=== PATIENT | male | born 1935 | race African-American/Black ===

== ENCOUNTER 2022-05-26 11:43 | Inpatient (IN) | payer MEDICARE, MEDICAID ==
[2022-05-26] VITALS (18 sets, daily range): BP systolic 85–129; BP diastolic 52–72
[~2022-05-26] VITALS: Ht 170.2 cm; Wt 69.0 kg
[2022-05-26] MEDS ORDERED: DILTIAZEM HCL 5MG/ML 5ML VIAL IV ONE ×2 (12:15→13:00)
[2022-05-26] MEDS ORDERED: SODIUM CHLORIDE 0.9% 1,000 ML IV ONE (12:15)
[2022-05-26] MEDS ORDERED: DILTIAZEM HCL 125 MG in DEXT 5% WATER 100 ML IV ONE (13:45)
[2022-05-26 14:12] LABS: BASOPHILS % 0.1 % (0.0-2.0); EOSINOPHILS % 0.5 % (0.0-5.0); HEMATOCRIT. 30.2 % (42.0-52.0); LYMPHOCYTES % 9.3 % (20.0-50.0); MEAN CORPUSCULAR HEMOGLOBIN 32.7 pg (28.0-32.0); MEAN CORPUSCULAR VOLUME 109.6 fL (80.0-94.0); MEAN PLATELET VOLUME 11.1 fl (7.4-10.4); MONOCYTES % 2.3 % (2.0-8.0); NEUTROPHILS % 87.8 % (40.0-76.0); PLATELET 354 x1000/uL (130-400); RED BLOOD CELL COUNT 2.76 mill/uL (4.7-6.1)
[2022-05-26 14:17] LABS: CHLORIDE 129 mEq/L (98-107); INR 1.1; PROTHROMBIN TIME 11.9 sec (9.6-11.0)
[2022-05-26] MEDS: DILTIAZEM 125MG/125ML PMX 100 ML IV SCH (14:39)
[2022-05-26] MEDS ORDERED: LIDOCAINE HCL 1% 30ML VIAL (10MG/ML) ONE (14:43)
[2022-05-26] MEDS ORDERED: ADENOSINE 3 MG/ML 2ML VIAL IV ONE ×2 (15:00)
[2022-05-26] MEDS ORDERED: AMIODARONE HCL 900 MG in DEXT 5% WATER 482 ML IV STA ×2 (15:00→16:43)
[2022-05-26] MEDS ORDERED: AMIODARONE HCL 150 MG in DEXT 5% WATER 100 ML IV ONE (15:00)
[2022-05-26] MEDS ORDERED: SODIUM CHLORIDE 0.9% 1000ML BAG (SEPSIS BOLUS) IV NR (15:30)
[2022-05-26] MEDS ORDERED: CEFEPIME HCL 1000MG/VIAL INJ IM ONE (15:30)
[2022-05-26] MEDS ORDERED: VANCOMYCIN 1G PREMIX 200 ML IV SCH (15:30)
[2022-05-26] MEDS ORDERED: SODIUM CHLORIDE 0.45% 1,000 ML IV ONE (15:45)
[2022-05-26 16:00] LABS: BG BASE EXCESS -1.2 mmol/L (-2.0-2.0); BG CARBOXYHEMOGLOBIN 0.3 % (0.5-1.5); BG DEOXYHEMOGLOBIN 0.6 % (0.0-5.0); BG FRACTION INSPIRED OXYGEN 100; BG METHEMOGLOBIN 0.4 % (0.0-1.5); BG OXYGEN SATURATION 99.4 % (92.0-98.5); BG OXYHEMOGLOBIN 98.7 % (94.0-97.0); BG PCO2 31.3 mmHg (35.0-45.0); BG PH 7.464 (7.350-7.450); BG PO2 387.8 mmHg (75.0-100.0); BG SAMPLE SITE RIGHT RADIAL; BG TOTAL HEMOGLOBIN 10.1 g/dL (12.0-18.0); BG VENT MODE MASK - BIPAP
[2022-05-26] MEDS ORDERED: ROCURONIUM BROMIDE 10MG/ML VIAL 5ML IV ONE (16:15)
[2022-05-26] MEDS ORDERED: CEFEPIME 1,000 MG in DEXTROSE 5% WATER 50 ML IV NR (16:15)
[2022-05-26] MEDS ORDERED: ETOMIDATE 2MG/ML 10ML VIAL IV ONE (16:15)
[2022-05-26] MEDS ORDERED: MIDAZOLAM HCL 100 MG in DEXT 5% WATER 80 ML IV ONE (16:15)
[2022-05-26 16:23] LABS: CLARITY URINE CLEAR (CLEAR); COLOR URINE YELLOW (YELLOW); KETONES URINE NEGATIVE (NEGATIVE); LEUKOCYTE ESTERASE URINE TRACE (NEGATIVE); NITRITE URINE NEGATIVE (NEGATIVE); PH URINE 8.5 (4.5-8.0); PROTEIN URINE 1+ (NEGATIVE); SPECIFIC GRAVITY URINE 1.012 (1.005-1.030); UROBILINOGEN URINE 0.2 E.U./dL (0.2-1.0)
[2022-05-26 16:24] LABS: OCCULT BLOOD URINE NEGATIVE (NEGATIVE)
[2022-05-26] MEDS ORDERED: MIDAZOLAM HCL 100 MG in SODIUM CHLORIDE 0.9% 100 ML IV PRN (16:45)
[2022-05-26] MEDS ORDERED: ACETAMINOPHEN 650MG SUPP PR ONE (17:15)
[2022-05-26 17:49] LABS: BG BASE EXCESS -2.9 mmol/L (-2.0-2.0); BG CARBOXYHEMOGLOBIN 0.3 % (0.5-1.5); BG DEOXYHEMOGLOBIN 6.6 % (0.0-5.0); BG FRACTION INSPIRED OXYGEN 45; BG HCO3 ACT 22.5 mmol/L (22.0-26.0); BG METHEMOGLOBIN 0.7 % (0.0-1.5); BG OXYGEN SATURATION 93.3 % (92.0-98.5); BG OXYHEMOGLOBIN 92.4 % (94.0-97.0); BG PCO2 41.6 mmHg (35.0-45.0); BG PH 7.351 (7.350-7.450); BG PO2 77.1 mmHg (75.0-100.0); BG SAMPLE SITE RIGHT RADIAL; BG TOTAL HEMOGLOBIN 9.8 g/dL (12.0-18.0); BG VENT MODE VENT - AC
[2022-05-26] MEDS ORDERED: FENTANYL 2500MCG/250ML PMX 250 ML IV PRN (18:00)
[2022-05-26] MEDS ORDERED: MIDAZOLAM HCL 100 MG in SODIUM CHLORIDE 0.9% 80 ML IV PRN (18:00)
[2022-05-26] MEDS ORDERED: AMIODARONE HCL 900 MG in DEXT 5% WATER 482 ML IV PRN (18:30)
[2022-05-26] MEDS ORDERED: DOCUSATE SODIUM 100MG CAPSULE PO PRN (19:00)
[2022-05-26] MEDS ORDERED: ONDANSETRON HCL 4MG/2ML INJ IV PRN (19:00)
[2022-05-26] MEDS ORDERED: ACETAMINOPHEN 650MG SUPP PR PRN (19:00)
[2022-05-26] MEDS: DEXTROSE 5% WATER 1,000 ML IV SCH (19:42)
[2022-05-26] MEDS ORDERED: ENOXAPARIN 30MG/0.3ML SYR SUBCUT SCH (20:00)
[2022-05-26] MEDS: IPRATROPIUM BROMIDE (0.02%) 0.5MG/2.5ML NEB HHN SCH (20:14)
[2022-05-26] MEDS: PIPERACILLIN/TAZOBACTAM 3.375 G in DEXTROSE 5% WATER 50 ML IV SCH (22:00)
[2022-05-27] VITALS (92 sets, daily range): BP systolic 81–126; BP diastolic 27–76
[2022-05-27] MEDS: IPRATROPIUM BROMIDE (0.02%) 0.5MG/2.5ML NEB HHN SCH ×5 (01:46→23:41)
[2022-05-27] MEDS: DILTIAZEM 125MG/125ML PMX 100 ML IV SCH (03:01)
[2022-05-27 05:53] LABS: BASOPHILS % 0.4 % (0.0-2.0); EOSINOPHILS % 0.7 % (0.0-5.0); HEMATOCRIT. 24.4 % (42.0-52.0); HEMOGLOBIN. 7.6 g/dL (14.0-18.0); LYMPHOCYTES % 10.8 % (20.0-50.0); MEAN CORPUSCULAR HEMOGLOBIN 33.6 pg (28.0-32.0); MEAN CORPUSCULAR VOLUME 107.6 fL (80.0-94.0); MEAN PLATELET VOLUME 11.2 fl (7.4-10.4); MONOCYTES % 3.6 % (2.0-8.0); NEUTROPHILS % 84.5 % (40.0-76.0); PLATELET 246 x1000/uL (130-400); RED BLOOD CELL COUNT 2.27 mill/uL (4.7-6.1)
[2022-05-27] MEDS: PIPERACILLIN/TAZOBACTAM 3.375 G in DEXTROSE 5% WATER 50 ML IV SCH ×2 (06:00→13:22)
[2022-05-27 06:02] LABS: CHLORIDE 124 mEq/L (98-107)
[2022-05-27 06:11] LABS: HDL CHOLESTEROL 24 mg/dL (40-59); LDL CHOLESTEROL 40 mg/dL (5-100); T4 FREE 1.19 ng/dL (0.76-1.46)
[2022-05-27] MEDS ORDERED: PHENYLEPHRINE 100 MG in DEXT 5% WATER 240 ML IV PRN (07:00)
[2022-05-27] MEDS ORDERED: SODIUM CHLORIDE 0.45% 500 ML IV NR (07:15)
[2022-05-27 08:25] LABS: BG BASE EXCESS -2.2 mmol/L (-2.0-2.0); BG CARBOXYHEMOGLOBIN 0.3 % (0.5-1.5); BG DEOXYHEMOGLOBIN 1.6 % (0.0-5.0); BG FRACTION INSPIRED OXYGEN 40; BG HCO3 ACT 20.9 mmol/L (22.0-26.0); BG METHEMOGLOBIN 0.3 % (0.0-1.5); BG OXYGEN SATURATION 98.4 % (92.0-98.5); BG OXYHEMOGLOBIN 97.8 % (94.0-97.0); BG PCO2 29.7 mmHg (35.0-45.0); BG PH 7.465 (7.350-7.450); BG PO2 131.2 mmHg (75.0-100.0); BG SAMPLE SITE RIGHT RADIAL; BG TOTAL HEMOGLOBIN 9.6 g/dL (12.0-18.0); BG TOTAL RESPIRATORY RATE 31 b/min; BG VENT MODE VENT - AC
[2022-05-27] MEDS: MIDODRINE HCL 5MG TABLET GT SCH ×4 (08:31→16:08)
[2022-05-27] MEDS: DEXTROSE 5% WATER 1,000 ML IV SCH ×2 (08:31→22:03)
[2022-05-27] MEDS ORDERED: BISACODYL 10MG SUPP PR PRN (13:00)
[2022-05-27] MEDS: POLYETHYLENE GLYCOL 3350 (17GM) 1 DOSE PACK PO SCH (13:22)
[2022-05-27] MEDS: MORPHINE SULFATE 2 MG/ML CPJ (NOT FOR IM USE) IV PRN (13:24)
[2022-05-27] MEDS ORDERED: NALOXONE HCL 0.4MG/ML VIAL IV PRN (13:30)
[2022-05-28] VITALS (91 sets, daily range): BP systolic 99–131; BP diastolic 51–74
[2022-05-28] MEDS: PIPERACILLIN/TAZOBACTAM 3.375 G in DEXTROSE 5% WATER 50 ML IV SCH ×3 (00:03→21:33)
[2022-05-28] MEDS: AMIODARONE HCL 200 MG TABLET PO SCH ×4 (00:37→16:27)
[2022-05-28] MEDS: IPRATROPIUM BROMIDE (0.02%) 0.5MG/2.5ML NEB HHN SCH ×4 (04:47→20:38)
[2022-05-28 05:26] LABS: BASOPHILS % 0.1 % (0.0-2.0); EOSINOPHILS % 1.6 % (0.0-5.0); MEAN CORPUSCULAR HEMOGLOBIN 34.1 pg (28.0-32.0); MEAN CORPUSCULAR VOLUME 107.1 fL (80.0-94.0); MEAN PLATELET VOLUME 10.9 fl (7.4-10.4); MONOCYTES % 3.2 % (2.0-8.0); NEUTROPHILS % 83.1 % (40.0-76.0); PLATELET 212 x1000/uL (130-400); RED BLOOD CELL COUNT 1.91 mill/uL (4.7-6.1); RED CELL DISTRIBUTION WIDTH 17.9 % (11.6-14.6)
[2022-05-28 05:54] LABS: HEMOGLOBIN. 6.5 g/dL (14.0-18.0)
[2022-05-28 05:55] LABS: HEMATOCRIT. 20.5 % (42.0-52.0)
[2022-05-28 08:19] LABS: BG BASE EXCESS -2.3 mmol/L (-2.0-2.0); BG CARBOXYHEMOGLOBIN 0.7 % (0.5-1.5); BG DEOXYHEMOGLOBIN 1.2 % (0.0-5.0); BG FRACTION INSPIRED OXYGEN 30; BG HCO3 ACT 21.4 mmol/L (22.0-26.0); BG METHEMOGLOBIN 0.4 % (0.0-1.5); BG OXYGEN SATURATION 98.8 % (92.0-98.5); BG OXYHEMOGLOBIN 97.7 % (94.0-97.0); BG PCO2 32.1 mmHg (35.0-45.0); BG PH 7.442 (7.350-7.450); BG PO2 121.1 mmHg (75.0-100.0); BG SAMPLE SITE LEFT RADIAL; BG TOTAL HEMOGLOBIN 7.4 g/dL (12.0-18.0); BG VENT MODE VENT - AC
[2022-05-28] MEDS: POLYETHYLENE GLYCOL 3350 (17GM) 1 DOSE PACK PO SCH (08:40)
[2022-05-28] MEDS: MIDODRINE HCL 5MG TABLET GT SCH ×3 (08:41→16:28)
[2022-05-28] MEDS: SODIUM CHLORIDE 0.45% 1,000 ML IV SCH (08:42)
[2022-05-28] MEDS: MORPHINE SULFATE 2 MG/ML CPJ (NOT FOR IM USE) IV PRN ×2 (11:16→17:49)
[2022-05-28] MEDS: FAMOTIDINE 20MG TABLET PEG SCH (21:33)
[2022-05-28 23:48] LABS: HEMATOCRIT 22.6 % (42.0-52.0); HEMOGLOBIN 7.3 g/dL (14.0-18.0)
[2022-05-29] VITALS (74 sets, daily range): BP systolic 92–155; BP diastolic 55–94
[2022-05-29] LABS: PROTHROMBIN TIME 11.2 sec (9.6-11.0)
[2022-05-29] MEDS: SODIUM CHLORIDE 0.45% 1,000 ML IV SCH ×2 (00:50→16:32)
[2022-05-29] MEDS: IPRATROPIUM BROMIDE (0.02%) 0.5MG/2.5ML NEB HHN SCH ×4 (01:15→20:05)
[2022-05-29 04:24] LABS: BASOPHILS % 0.2 % (0.0-2.0); HEMATOCRIT. 24.6 % (42.0-52.0); HEMOGLOBIN. 8.1 g/dL (14.0-18.0); LYMPHOCYTES % 10.7 % (20.0-50.0); MEAN CORPUSCULAR HEMOGLOBIN 33.1 pg (28.0-32.0); MEAN CORPUSCULAR VOLUME 100.9 fL (80.0-94.0); MEAN PLATELET VOLUME 10.9 fl (7.4-10.4); MONOCYTES % 3.5 % (2.0-8.0); NEUTROPHILS % 83.6 % (40.0-76.0); PLATELET 231 x1000/uL (130-400); RED BLOOD CELL COUNT 2.43 mill/uL (4.7-6.1); RED CELL DISTRIBUTION WIDTH 22.3 % (11.6-14.6)
[2022-05-29 04:40] LABS: PHOSPHORUS 3.6 mg/dL (2.5-4.9)
[2022-05-29 05:13] LABS: VITAMIN B12 SERUM 1397 pg/mL (211-911)
[2022-05-29 08:16] LABS: PLATELET ESTIMATE NORMAL
[2022-05-29] MEDS: PIPERACILLIN/TAZOBACTAM 3.375 G in DEXTROSE 5% WATER 50 ML IV SCH ×2 (08:35→21:53)
[2022-05-29] MEDS: AMIODARONE HCL 200 MG TABLET PO SCH ×3 (08:36→16:32)
[2022-05-29] MEDS: MIDODRINE HCL 5MG TABLET GT SCH ×3 (08:36→16:32)
[2022-05-29] MEDS: POLYETHYLENE GLYCOL 3350 (17GM) 1 DOSE PACK PO SCH (08:37)
[2022-05-29 08:50] LABS: BG BASE EXCESS -1.4 mmol/L (-2.0-2.0); BG CARBOXYHEMOGLOBIN 0.7 % (0.5-1.5); BG DEOXYHEMOGLOBIN 2.7 % (0.0-5.0); BG FRACTION INSPIRED OXYGEN 30; BG HCO3 ACT 22.6 mmol/L (22.0-26.0); BG METHEMOGLOBIN 0.3 % (0.0-1.5); BG OXYGEN SATURATION 97.3 % (92.0-98.5); BG OXYHEMOGLOBIN 96.3 % (94.0-97.0); BG PCO2 34.6 mmHg (35.0-45.0); BG PH 7.432 (7.350-7.450); BG PO2 95.8 mmHg (75.0-100.0); BG SAMPLE SITE RIGHT RADIAL; BG TOTAL HEMOGLOBIN 8.5 g/dL (12.0-18.0); BG VENT MODE VENT - AC
[2022-05-29] MEDS ORDERED: VANCOMYCIN 1GM PMX (XELLIA) 200 ML IV NR (13:00)
[2022-05-29 13:22] LABS: BG BASE EXCESS -2.3 mmol/L (-2.0-2.0); BG DEOXYHEMOGLOBIN 2.6 % (0.0-5.0); BG FRACTION INSPIRED OXYGEN 30; BG HCO3 ACT 21.7 mmol/L (22.0-26.0); BG METHEMOGLOBIN 0.3 % (0.0-1.5); BG OXYGEN SATURATION 97.4 % (92.0-98.5); BG OXYHEMOGLOBIN 97.1 % (94.0-97.0); BG PCO2 33.9 mmHg (35.0-45.0); BG PH 7.424 (7.350-7.450); BG PO2 97.9 mmHg (75.0-100.0); BG SAMPLE SITE RIGHT BRACHIAL; BG TOTAL HEMOGLOBIN 9.1 g/dL (12.0-18.0); BG TOTAL RESPIRATORY RATE 25 b/min; BG VENT MODE VENT - CPAP
[2022-05-29] MEDS: FAMOTIDINE 20MG TABLET PEG SCH (21:54)
[2022-05-30] VITALS (89 sets, daily range): BP systolic 122–168; BP diastolic 51–98
[2022-05-30] MEDS: IPRATROPIUM BROMIDE (0.02%) 0.5MG/2.5ML NEB HHN SCH ×4 (02:16→20:03)
[2022-05-30 05:21] LABS: BASOPHILS % 0.2 % (0.0-2.0); HEMOGLOBIN. 8.5 g/dL (14.0-18.0); LYMPHOCYTES % 13.8 % (20.0-50.0); MEAN CORPUSCULAR HEMOGLOBIN 33.3 pg (28.0-32.0); MEAN CORPUSCULAR VOLUME 101.4 fL (80.0-94.0); MEAN PLATELET VOLUME 10.5 fl (7.4-10.4); MONOCYTES % 4.2 % (2.0-8.0); NEUTROPHILS % 80.8 % (40.0-76.0); PLATELET 263 x1000/uL (130-400); RED BLOOD CELL COUNT 2.57 mill/uL (4.7-6.1); RED CELL DISTRIBUTION WIDTH 21.5 % (11.6-14.6)
[2022-05-30] MEDS: PIPERACILLIN/TAZOBACTAM 3.375 G in DEXTROSE 5% WATER 50 ML IV SCH ×2 (08:16→21:30)
[2022-05-30] MEDS: AMIODARONE HCL 200 MG TABLET PO SCH ×3 (08:16→16:04)
[2022-05-30] MEDS: MIDODRINE HCL 5MG TABLET GT SCH (08:17)
[2022-05-30] MEDS: POLYETHYLENE GLYCOL 3350 (17GM) 1 DOSE PACK PO SCH (08:17)
[2022-05-30] MEDS ORDERED: VANCOMYCIN 1G PREMIX 200 ML IV SCH (13:00)
[2022-05-30] MEDS: FAMOTIDINE 20MG TABLET PEG SCH (21:30)
[2022-05-30] MEDS: MORPHINE SULFATE 2 MG/ML CPJ (NOT FOR IM USE) IV PRN (23:11)
[2022-05-31] VITALS (39 sets, daily range): BP systolic 116–164; BP diastolic 50–85
[2022-05-31] MEDS: IPRATROPIUM BROMIDE (0.02%) 0.5MG/2.5ML NEB HHN SCH ×3 (00:54→15:48)
[2022-05-31] MEDS: AMIODARONE HCL 200 MG TABLET PO SCH ×3 (02:09→17:02)
[2022-05-31 04:48] LABS: BASOPHILS % 0.2 % (0.0-2.0); EOSINOPHILS % 0.6 % (0.0-5.0); HEMATOCRIT. 27.3 % (42.0-52.0); LYMPHOCYTES % 15.1 % (20.0-50.0); MEAN CORPUSCULAR HEMOGLOBIN 33.4 pg (28.0-32.0); MEAN CORPUSCULAR VOLUME 101.8 fL (80.0-94.0); MEAN PLATELET VOLUME 10.3 fl (7.4-10.4); MONOCYTES % 4.2 % (2.0-8.0); NEUTROPHILS % 79.9 % (40.0-76.0); PLATELET 304 x1000/uL (130-400); RED BLOOD CELL COUNT 2.68 mill/uL (4.7-6.1); RED CELL DISTRIBUTION WIDTH 20.9 % (11.6-14.6)
[2022-05-31 05:33] LABS: PHOSPHORUS 4.1 mg/dL (2.5-4.9)
[2022-05-31] MEDS: PIPERACILLIN/TAZOBACTAM 3.375 G in DEXTROSE 5% WATER 50 ML IV SCH (08:05)
[2022-05-31] MEDS: POLYETHYLENE GLYCOL 3350 (17GM) 1 DOSE PACK PO SCH (08:06)
[2022-05-31] MEDS: CARVEDILOL 6.25 MG TABLET PO SCH ×2 (08:07→20:28)
[2022-05-31] MEDS: SULFAMETHOXAZOLE/TRIMETHOPRIM 800/160MG TABLET PO SCH ×2 (17:02→22:17)
[2022-05-31] MEDS: FAMOTIDINE 20MG TABLET PEG SCH (20:28)
[2022-06-01] VITALS: BP 127/60
[2022-06-01] MEDS: IPRATROPIUM BROMIDE (0.02%) 0.5MG/2.5ML NEB HHN SCH ×3 (01:22→13:30)
[2022-06-01] MEDS: MORPHINE SULFATE 2 MG/ML CPJ (NOT FOR IM USE) IV PRN ×2 (01:45→13:14)
[2022-06-01 04:00] VITALS: BP 146/60
[2022-06-01] MEDS: SULFAMETHOXAZOLE/TRIMETHOPRIM 800/160MG TABLET PO SCH ×3 (05:12→21:30)
[2022-06-01 06:49] LABS: BASOPHILS % 0.3 % (0.0-2.0); EOSINOPHILS % 0.9 % (0.0-5.0); HEMATOCRIT. 25.6 % (42.0-52.0); HEMOGLOBIN. 8.3 g/dL (14.0-18.0); LYMPHOCYTES % 17.8 % (20.0-50.0); MEAN CORPUSCULAR HEMOGLOBIN 33.2 pg (28.0-32.0); MEAN CORPUSCULAR VOLUME 101.6 fL (80.0-94.0); MEAN PLATELET VOLUME 9.8 fl (7.4-10.4); MONOCYTES % 4.6 % (2.0-8.0); NEUTROPHILS % 76.4 % (40.0-76.0); PLATELET 328 x1000/uL (130-400); RED BLOOD CELL COUNT 2.52 mill/uL (4.7-6.1); RED CELL DISTRIBUTION WIDTH 20.7 % (11.6-14.6)
[2022-06-01 08:00] VITALS: BP 153/72
[2022-06-01] MEDS: POLYETHYLENE GLYCOL 3350 (17GM) 1 DOSE PACK PO SCH (08:19)
[2022-06-01] MEDS: CARVEDILOL 6.25 MG TABLET PO SCH ×2 (09:05→21:30)
[2022-06-01] MEDS: AMIODARONE HCL 200 MG TABLET PO SCH (09:05)
[2022-06-01 09:26] LABS: PHOSPHORUS 3.6 mg/dL (2.5-4.9)
[2022-06-01 12:00] VITALS: BP 139/57
[2022-06-01 16:00] VITALS: BP 122/57
[2022-06-01 20:00] VITALS: BP 136/63
[2022-06-01] MEDS ORDERED: IPRATROPIUM/ALBUTEROL 0.5-3(2.5)MG/3ML NEB ONE (20:40)
[2022-06-01] MEDS: FAMOTIDINE 20MG TABLET PEG SCH (21:29)
[2022-06-02] VITALS: BP 116/59
[2022-06-02] MEDS: IPRATROPIUM/ALBUTEROL 0.5-3(2.5)MG/3ML NEB HHN SCH ×3 (01:30→14:28)
[2022-06-02] MEDS: ACETYLCYSTEINE 100MG/ML 10% VIAL 4ML INH SCH ×2 (01:30→09:00)
[2022-06-02 05:06] VITALS: BP 130/60
[2022-06-02] MEDS: SULFAMETHOXAZOLE/TRIMETHOPRIM 800/160MG TABLET PO SCH ×2 (05:26→14:12)
[2022-06-02 08:00] VITALS: BP 119/53
[2022-06-02] MEDS: POLYETHYLENE GLYCOL 3350 (17GM) 1 DOSE PACK PO SCH (08:15)
[2022-06-02] MEDS: CARVEDILOL 6.25 MG TABLET PO SCH (09:17)
[2022-06-02 12:00] VITALS: BP 133/46
[2022-06-02 16:00] VITALS: BP 126/57
[2022-06-02 19:08] VITALS: BP 126/57
== END 2022-06-02 21:00 | DRG 871 ==
LOC: ER 11:43 → EDBEDREQ 12:22 → EDBEDREQTM 14:00 → EDBEDREQ 14:00 → CANRESERV 16:00 → ENRESERV 16:00 → EDBEDREQSVC 16:03 → MICUSO 16:03 → EDBEDREQTM 16:03 → EDBD 16:03 → EDBEDREQ 16:11 → ENRESERV 16:24 → 6WST 05-31 10:00
PROVIDERS: ADMIT Hospitalist; ATTEND Hospitalist
PROC: 5A1945Z Respiratory Ventilation, 24-96 Consecutive Hours (ICD-10-PCS; principal; 2022-05-26)
PROC: 02HV33Z Insertion of Infusion Device into Superior Vena Cava, Percutaneous Approach (ICD-10-PCS; 2022-05-26)
PROC: B548ZZA Ultrasonography of Superior Vena Cava, Guidance (ICD-10-PCS; 2022-05-26)
PROC: 0BH17EZ Insertion of Endotracheal Airway into Trachea, Via Natural or Artificial Opening (ICD-10-PCS; 2022-05-26)
PROC: 5A09357 Assistance with Respiratory Ventilation, Less than 24 Consecutive Hours, Continuous Positive Airway Pressure (ICD-10-PCS; 2022-05-26)
PROC: 30233N1 Transfusion of Nonautologous Red Blood Cells into Peripheral Vein, Percutaneous Approach (ICD-10-PCS; 2022-05-28)
DX: A41.9 Sepsis, unspecified organism (principal); I21.4 Non-ST elevation (NSTEMI) myocardial infarction; J96.01 Acute respiratory failure with hypoxia; R57.1 Hypovolemic shock; R65.21 Severe sepsis with septic shock; N17.0 Acute kidney failure with tubular necrosis; I50.23 Acute on chronic systolic (congestive) heart failure; N17.9 Acute kidney failure, unspecified; E87.0 Hyperosmolality and hypernatremia; G12.21 Amyotrophic lateral sclerosis; I48.92 Unspecified atrial flutter; E87.20 Acidosis, unspecified; L03.116 Cellulitis of left lower limb; G93.40 Encephalopathy, unspecified; N39.0 Urinary tract infection, site not specified; I48.91 Unspecified atrial fibrillation; Z20.822 Contact with and (suspected) exposure to COVID-19; R13.10 Dysphagia, unspecified; I11.0 Hypertensive heart disease with heart failure; D64.9 Anemia, unspecified; E86.0 Dehydration; E78.5 Hyperlipidemia, unspecified; M06.9 Rheumatoid arthritis, unspecified; E86.1 Hypovolemia; I45.10 Unspecified right bundle-branch block; R62.7 Adult failure to thrive; Z85.51 Personal history of malignant neoplasm of bladder; Z93.1 Gastrostomy status; Z74.01 Bed confinement status
CPT/HCPCS: 31500; 36415; 36573; 36600; 71045; 78580; 80048; 80053; 80061; 80202; 81003; 82270; 82375; 82607; 82746; 82805; 83540; 83550; 83605; 83735; 83880; 84100; 84145; 84439; 84443; 84484; 85014; 85018; 85025; 85049; 85384; 86850; 86900; 86920; 87070; 87077; 87186; 87426; 93005; 93306; 93970; 94002; 94003; 94640; 94660; 97162; 97166; 99291; A6261; C1725; C9803; J0153; J0282; J0692; J1650; J2250; J2270; J2370; J2543; J3370; J3490; J7030; J7060; J7070; P9016; A4315